=== PATIENT | male | born 1980 | race Two or more races ===

== ENCOUNTER 2020-06-12 13:00 | Emergency (ER) | payer SELFPAY ==
[~2020-06-12] VITALS: Ht 167.6 cm; Wt 77.0 kg
[2020-06-12 14:53] VITALS: BP 150/81
== END 2020-06-12 15:10 | disposition home or self-care (01) ==
LOC: ER 13:00
DX: U07.1 COVID-19 (principal)
CPT/HCPCS: 71045; 99284; C9803; U0003

== ENCOUNTER 2020-07-03 19:57 | Inpatient (IN) | payer MEDICAID, OTHER, SELFPAY ==
[~2020-07-03] VITALS: Ht 160 cm; Wt 90.7 kg
[2020-07-03] MEDS ORDERED: SODIUM CHLORIDE 0.9% 1,000 ML IV ONE ×2 (21:44→23:15)
[2020-07-03 22:07] LABS: BASOPHILS % 0.8 % (0.0-2.0); EOSINOPHILS % 0.4 % (0.0-5.0); HEMATOCRIT. 42.5 % (42.0-52.0); HEMOGLOBIN. 14.6 g/dL (14.0-18.0); LYMPHOCYTES % 12.6 % (20.0-50.0); MEAN CORPUSCULAR HEMOGLOBIN 31.1 pg (28.0-32.0); MEAN CORPUSCULAR VOLUME 90.9 fL (80.0-94.0); MEAN PLATELET VOLUME 7.6 fl (7.4-10.4); MONOCYTES % 8.8 % (2.0-8.0); NEUTROPHILS % 77.4 % (40.0-76.0); PLATELET 169 x1000/uL (130-400); RED BLOOD CELL COUNT 4.68 mill/uL (4.7-6.1)
[2020-07-03 22:14] LABS: CHLORIDE 106 mEq/L (98-107)
[2020-07-03 22:18] LABS: ETHANOL BLOOD < 10 mg/dL
[2020-07-03 22:35] LABS: CREATINE KINASE 1477 IU/L (39-308)
[2020-07-03 23:38] LABS: CLARITY URINE CLEAR (CLEAR); COLOR URINE YELLOW (YELLOW); KETONES URINE NEGATIVE (NEGATIVE); LEUKOCYTE ESTERASE URINE NEGATIVE (NEGATIVE); NITRITE URINE NEGATIVE (NEGATIVE); OCCULT BLOOD URINE NEGATIVE (NEGATIVE); PROTEIN URINE 1+ (NEGATIVE); SPECIFIC GRAVITY URINE 1.016 (1.005-1.030)
[2020-07-04 00:08] LABS: METHADONE URINE SCREEN NEGATIVE (NEGATIVE); OPIATES URINE SCREEN NEGATIVE (NEGATIVE)
[2020-07-04 00:09] LABS: *AMPHETAMINES SCREEN URINE PRESUMTIVE POSITIVE (NEGATIVE); CANNABINOID URINE SCREEN NEGATIVE (NEGATIVE); PHENCYCLIDINE URINE SCREEN NEGATIVE (NEGATIVE)
[2020-07-04 00:10] LABS: *BARBITURATES SCREEN URINE NEGATIVE (NEGATIVE); *BENZODIAZEPINES SCREEN URINE NEGATIVE (NEGATIVE); *COCAINE SCREEN URINE NEGATIVE (NEGATIVE)
[2020-07-04] MEDS ORDERED: ONDANSETRON HCL 4MG/2ML INJ IV PRN ×2 (07:30→13:45)
[2020-07-04] MEDS ORDERED: SODIUM CHLORIDE 0.9% 1,000 ML IV SCH (08:00)
[2020-07-04 08:26] LABS: BASOPHILS % 0.6 % (0.0-2.0); EOSINOPHILS % 2.6 % (0.0-5.0); HEMATOCRIT. 47.6 % (42.0-52.0); LYMPHOCYTES % 23.3 % (20.0-50.0); MEAN CORPUSCULAR HEMOGLOBIN 31.1 pg (28.0-32.0); MEAN CORPUSCULAR VOLUME 92.4 fL (80.0-94.0); MEAN PLATELET VOLUME 7.9 fl (7.4-10.4); MONOCYTES % 9.5 % (2.0-8.0); PLATELET 199 x1000/uL (130-400); RED BLOOD CELL COUNT 5.15 mill/uL (4.7-6.1); RED CELL DISTRIBUTION WIDTH 15.1 % (11.6-14.6)
[2020-07-04 08:37] LABS: CHLORIDE 106 mEq/L (98-107)
[2020-07-04 12:00] VITALS: BP 137/89
[2020-07-04] MEDS: SODIUM CHLORIDE 0.45% 1,000 ML IV SCH ×2 (14:41→23:45)
[2020-07-04 15:20] VITALS: BP 137/89
[2020-07-04 16:00] VITALS: BP 120/81
[2020-07-04 18:46] LABS: CREATINE KINASE 1051 IU/L (39-308)
[2020-07-04 20:00] VITALS: BP 151/87
[2020-07-05] VITALS: BP 112/68
[2020-07-05 04:00] VITALS: BP 115/77
[2020-07-05 08:00] VITALS: BP 116/67
[2020-07-05] MEDS ORDERED: ONDANSETRON HCL 4MG/2ML INJ IV PRN (08:45)
[2020-07-05] MEDS ORDERED: AMLODIPINE 5MG TABLET PO SCH ×2 (09:00)
[2020-07-05] MEDS: SODIUM CHLORIDE 0.45% 1,000 ML IV SCH (09:45)
[2020-07-05 12:07] VITALS: BP 114/69
[2020-07-05 13:44] LABS: BASOPHILS % 0.3 % (0.0-2.0); EOSINOPHILS % 4.9 % (0.0-5.0); HEMATOCRIT. 42.3 % (42.0-52.0); HEMOGLOBIN. 14.4 g/dL (14.0-18.0); LYMPHOCYTES % 22.9 % (20.0-50.0); MEAN CORPUSCULAR HEMOGLOBIN 31.3 pg (28.0-32.0); MEAN CORPUSCULAR VOLUME 91.8 fL (80.0-94.0); MEAN PLATELET VOLUME 7.9 fl (7.4-10.4); NEUTROPHILS % 60.9 % (40.0-76.0); PLATELET 142 x1000/uL (130-400); RED BLOOD CELL COUNT 4.61 mill/uL (4.7-6.1)
[2020-07-05 14:03] LABS: CHLORIDE 107 mEq/L (98-107)
[2020-07-05 14:11] LABS: CREATINE KINASE 424 IU/L (39-308)
[2020-07-05 15:13] VITALS: BP 114/69
== END 2020-07-05 16:26 | disposition home or self-care (01) | DRG 351 ==
LOC: ER 19:57 → 6WST 07-04 00:24 → ER 07-04 10:30 → ENRESERV 07-04 10:31 → 6WST 07-04 17:26
PROVIDERS: ADMIT Family Medicine; ATTEND Family Medicine
DX: M62.82 Rhabdomyolysis (principal); E87.6 Hypokalemia; E66.9 Obesity, unspecified; I10 Essential (primary) hypertension; R74.8 Abnormal levels of other serum enzymes; R73.9 Hyperglycemia, unspecified; Z68.30 Body mass index [BMI] 30.0-30.9, adult
CPT/HCPCS: 36415; 76700; 80053; 80305; 80307; 80320; 80329; 81003; 82140; 82550; 85025; 93005; 99285; J7030; G0480